=== PATIENT | male | born 1995 | race Caucasian/White ===

== ENCOUNTER 2017-12-28 19:11 | Emergency (ER) | payer BC ==
--- NOTE | 2017-12-28 19:15 | ER Report ---
History and Physical Time Seen By MD: 19:15 HPI/ROS CHIEF COMPLAINT: possible esophageal foreign body. HISTORY OF PRESENT ILLNESS: This is a 22 year old male. He is having vomiting after eating a piece of burrito that feels like it got stuck in lower esophagus. Cannot drink liquids. Had CT scan and labs at urgent care which were unremarkable. Had Glucagon and no improvement. Still with feeling of something in esophagus. He has no shortness of breath. No cough. Has asthma, but no problems at this time. No musculoskeletal pain. Allergies: Coded Allergies: shellfish derived (Verified Allergy, Mild, CHEST CRAMPS, 12/28/17) tree nut (Verified Allergy, Mild, VOMITING, 12/28/17) Home Meds Active Scripts Ondansetron (ZOFRAN ODT) 4 Mg Tab.rapdis, 4 MG PO Q6H Y for NAUSEA/VOMITING, # 20 TAB.BRYCE 0 Refills Prov:ORLIN ANDERSON MD 12/28/17 Reported Medications Warfarin Sodium (WARFARIN SODIUM) 5 Mg Tablet, 5 MG PO QDAY, TAB 12/28/17 Reviewed Nurses Notes: Yes Constitutional Vital Sign - Last 24 Hours 12/28/17 12/28/17 12/28/17 19:21 20:24 20:27 Temp 100.3 Pulse 101 116 95 Resp 14 24 20 B/P (MAP) 127/75 Pulse Ox 96 O2 Delivery Room Air Intake and Output 12/28/17 12/28/17 12/29/17 15:00 23:00 07:00 Intake Total 150 ml Balance 150 ml Physical Exam General Appearance: The patient is alert. No acute distress. Eyes: Pupils are equal, round. No pallor, injection or icterus. ENT: Mucous membranes are moist. Normal oral mucosa. Posterior oropharynx is normal. Neck: Supple and non tender. Respiratory: Lungs are clear to auscultation. Cardiovascular: Regular rate and rhythm. No murmurs, gallops or rubs. Normal capillary refill. Gastrointestinal: Abdomen is soft, non-tender. Nondistended. Normal active bowel sounds. Neurological: Alert and oriented x3. No focal neurologic deficits Skin: Warm and dry. [ ] [DIFFERENTIAL DIAGNOSIS: After history and physical exam, differential diagnosis was considered for] [ ] Medical Decision Making ED Course/Re-evaluation Clinical Indication for ER IV: Hydration, IV Access ED Course After the patient arrived, gave the patient 10 mg of IV Reglan. Waited for this to take effect and then at the patient drink some Coke. In between giving the medicine and drinking a Coke, the patient had what he felt like was a asthma attack. Gave an albuterol nebulizer which helped his breathing. He was able to drink the Coke without any problem. Recommended follow-up with general surgery or gastroenterology for further evaluation as an outpatient even though he is feeling better Decision to Disposition Date: Dec 28, 2017 Decision to Disposition Time: 20:41 Depart Departure Latest Vital Signs Vital Signs Date Time Temp Pulse Resp B/P (MAP) Pulse Ox O2 Delivery O2 Flow Rate FiO2 12/28/17 20:27 95 20 12/28/17 19:21 100.3 127/75 96 Room Air Impression: Primary Impression: Esophagus, foreign body Condition: Improved Disposition: HOME OR SELF-CARE Referrals: EDEN MITCHELL MD New Scripts Ondansetron (ZOFRAN ODT) 4 Mg Tab.rapdis 4 MG PO Q6H Y for NAUSEA/VOMITING, #20 TAB.BRYCE 0 Refills Prov: ORLIN ANDERSON MD 12/28/17 Patient Instructions: Esophageal Foreign Body (ED) Additional Instructions: Even though the foreign body in the esophagus has passed, we recommend follow- up with Dr. Mitchell for further evaluation. Take Zofran 4mg, one every 6 hours as needed for nausea. Problem Qualifiers Primary Impression: Esophagus, foreign body Encounter type: initial encounter Qualified Codes: T18.108A - Unspecified foreign body in esophagus causing other injury, initial encounter ORLIN ANDERSON MD Dec 28, 2017 19:15
[2017-12-28] MEDS ORDERED: WARF5TAB23 PO (19:20)
[2017-12-28 19:21] VITALS: BP 127/75
[2017-12-28] MEDS ORDERED: NS(*) 0.9% 1000 ML BAG 1,000 ML IV ONE (19:40)
[2017-12-28] MEDS ORDERED: METOCLOPRAMIDE 10 MG/2 ML SDV IVP ONE (19:40)
[2017-12-28] MEDS ORDERED: ALBUTEROL 2.5 MG/3 ML NEB NEB ONE (20:20)
[2017-12-28] MEDS ORDERED: ONDA4TAB PO (20:42)
[2017-12-28] MEDS ORDERED: ONDANSETRON 4 MG ODT TH SL ONE (20:45)
[2017-12-29] MEDS ORDERED: ACET500T68 PO (16:04)
== END 2017-12-28 20:57 | disposition home or self-care (01) ==
LOC: ER 19:16
DX: T18.108A Unspecified foreign body in esophagus causing other injury, initial encounter (principal)
CPT/HCPCS: 94640; 96361; 96374; 99284; J2765; J7030; J7613; S0119

== ENCOUNTER → 2017-12-28 | Outpatient (REF) | payer BC ==
[~2017-12-28] MED LIST: ACET500T68 PO; ONDA4TAB PO; WARF5TAB23 PO
[2017-12-28 15:55] LABS: PLATELET COUNT, AUTOMATED 167 K/uL (150-450)
[2017-12-28 16:11] LABS: INR 1.32
== END ==
PROVIDERS: ATTEND Nurse Practitioner Family
DX: R50.9 Fever, unspecified (principal)
CPT/HCPCS: 82040; 82150; 82247; 82310; 82374; 82435; 82565; 82947; 83690; 84075; 84132; 84155; 84295; 84450; 84460; 84484; 84520; 85025; 85610

== ENCOUNTER → 2017-12-28 | Outpatient (CLI) | payer BC ==
[~2017-12-28] MED LIST changes: +IOPAMIDOL 76% 75 ML INFUS BTL 75 ML ONE
--- NOTE | 2017-12-28 18:56 | RADIOLOGY IMAGING REPORT ---
FACILITY: [facility] PATIENT NAME: Renzo Smith : 1995 MR: [id number] V: [id number] EXAM DATE: [id number] ORDERING PHYSICIAN: EDEN MCCAIN TECHNOLOGIST: Location: [facility] [place] Patient: Renzo Smith : 1995 Visit/Account:[id number] Date of Sevice: 12/28/2017 CT abdomen and pelvis with IV contrast Indication: Right lower abdominal pain and epigastric pain. Comparison: None available. . Technique: Axial CT images were obtained through the abdomen and pelvis during injection of nonioni c iodinated intravenous contrast. Reformatted coronal and sagittal images were also obtained. One of the following dose optimization techniques was utilized in the performance of this exam: Autom ated exposure control; adjustment of the mA and/or kV according to the patient's size; or use of an i terative reconstruction technique. Specific details can be referenced in the facility's radiology C T exam operational policy. Contrast: 75 ml of Isovue-370 IV contrast. Findings: Lower lung harry: Limited views lower lung field are unremarkable. Liver: No focal parenchymal abnormality of the liver. Biliary: Gallbladder appears unremarkable as well as the intra and extra hepatic biliary system. Pancreas: Normal appearance. Spleen: Normal appearance. Adrenal glands: Unremarkable. Kidneys / retroperitoneum: No evidence of nephrolithiasis or hydronephrosis. Left kidney does show a subcentimeter hypodensities too small characterize and statistically tiny cyst. No other discrete gabriel al lesions. Bowel / peritoneum / mesenteries: The visualized gastrointestinal tract, including the appendix, with in normal limits. There is a small hiatal hernia. The stomach shows no other focal abnormality. No free air, free fluid, fluid collections or areas of inflammation. Very small umbilical hernia cont aining fat. Lymph node assessment: No pathologic adenopathy identified. Pelvic structures: Pelvic structures visualized are within normal limits. Vessels: No significant atherosclerotic calcifications seen throughout a nonaneurysmal abdominal aort a and branches. Musculoskeletal / Body wall: No acute or aggressive osseous abnormality. IMPRESSION: 1. No acute intra-abdominal abnormality. The appendix is normal. 2. Small hiatal hernia. Report Dictated By: Ankush Salazar at 12/28/2017 6:45 PM Report E-Signed By: Ankush Salazar at 12/28/2017 6:52 PM WSN:[id number]
== END ==
LOC: CT 17:53
PROVIDERS: ATTEND Nurse Practitioner Family
DX: K44.9 Diaphragmatic hernia without obstruction or gangrene (principal)
CPT/HCPCS: 74177; Q9967

== ENCOUNTER 2017-12-29 15:47 | Emergency (ER) | payer BC ==
[~2017-12-29 15:47] MED LIST changes: -ACET500T68 PO
[2017-12-29] MEDS ORDERED: ACET500T68 PO (16:04)
[2017-12-29] MEDS ORDERED: NS(*) 0.9% 1000 ML BAG 1,000 ML IV ONE (16:20)
[2017-12-29] MEDS ORDERED: ALBUTEROL/IPRATROPIUM 3 ML NEB NEB ONE (16:20)
--- NOTE | 2017-12-29 16:41 | ER Report ---
History and Physical Time Seen By MD: 16:20 Hx. of Stated Complaint: HIGH FEVER "103", DISAPHORESIS AND SORE THROAT/ FEELS LIKE SOMETHING CAUGHT IN THROAT/CRAMPING THROAT; VOMITING 3X TODAY HPI/ROS CHIEF COMPLAINT: Fever, cough, chest pain HISTORY OF PRESENT ILLNESS: Patient is a 22-year-old male accompanied by his mother, who presents the ED with complaint of 4 day history of fever, cough, chest pain. He states that he has pain in his chest particularly with swallowing. He states that he is able to swallow liquids and solids well without any issue but is just painful. He states that he was initially seen at the urgent care yesterday and then sent to the emergency room for further evaluation. He states that he did have a CT scan completed which was normal. He states that he did have some blood work completed which was normal. He also did have an influenza test completed which was negative at the time. Mother's concerned about his heart with his fever. She states that he had a mild chemical aortic valve placed 14 months ago. He states that this was completed at [place], [place]. He does not have a urologist here yet although he did try to establish one but did not have stated identification would not let him establish care yet. Patient states he has been taking some Tylenol for fever reduction with some relief. He does take Coumadin daily for anticoagulation due to his mechanical valve. He states that his throat has been sore. REVIEW OF SYSTEMS: Constitutional: See history of present illness. Eyes: No discharge. ENT: See history of present illness. Cardiovascular: See history of present illness. No palpitations. Respiratory: See history of present illness. No shortness of breath. Gastrointestinal: No abdominal pain, no vomiting. Genitourinary: No hematuria. Musculoskeletal: No back pain. Skin: No rashes. Neurological: No headache. Allergies: Coded Allergies: shellfish derived (Verified Allergy, Mild, CHEST CRAMPS, 12/28/17) tree nut (Verified Allergy, Mild, VOMITING, 12/28/17) Home Meds Active Scripts Ondansetron (ZOFRAN ODT) 4 Mg Tab.rapdis, 4 MG PO Q6H Y for NAUSEA/VOMITING, # 20 TAB.BRYCE 0 Refills Prov:ORLIN ANDERSON MD 12/28/17 Reported Medications Acetaminophen (TYLENOL EXTRA STRENGTH) 500 Mg Tablet, 500 MG PO, TAB 3/16/18 Warfarin Sodium (WARFARIN SODIUM) 5 Mg Tablet, 5 MG PO QDAY, TAB 12/28/17 Reviewed Nurses Notes: Yes Old Medical Records Reviewed: Yes Hx Substance Use Disorder: Yes (JERRY) Hx Alcohol Use: No Constitutional Vital Sign - Last 24 Hours 12/29/17 12/29/17 12/29/17 12/29/17 15:58 15:58 16:02 16:06 Temp 100.1 Pulse 98 ??? Resp 20 B/P (MAP) 137/90 137/90 (106) 128/77 (94) Pulse Ox 94 93 O2 Delivery Room Air 12/29/17 12/29/17 12/29/17 12/29/17 16:17 16:30 16:32 16:32 Pulse 88 86 Resp 8 12 B/P (MAP) 143/86 (105) Pulse Ox 94 95 O2 Delivery Room Air 12/29/17 12/29/17 12/29/17 12/29/17 16:32 16:39 16:47 17:00 Pulse 85 85 ??? Resp 16 12 B/P (MAP) 146/99 (115) Pulse Ox 95 97 12/29/17 12/29/17 12/29/17 12/29/17 17:02 17:17 17:30 17:32 Pulse 87 ??? 80 Resp 11 15 B/P (MAP) 162/96 (118) Pulse Ox 99 12/29/17 17:47 Pulse ??? Physical Exam General Appearance: The patient is alert, has no immediate need for airway protection and no signs of toxicity. Patient appears to be in some mild distress. Eyes: Pupils equal and round no pallor or injection. ENT, Mouth: His pharynx is erythematous but no exudate is appreciated. Respiratory: There are no retractions, lungs are clear to auscultation. Cardiovascular: Regular rate and rhythm. There is a systolic click noted likely from the mechanical valve. There is no other murmur, rub, gallop appreciated. Gastrointestinal: Abdomen is soft and non tender, no masses, bowel sounds normal. Neurological: Cranial nerves II-12 intact. Skin: Warm and dry, no rashes. Musculoskeletal: Neck is supple non tender. Extremities are nontender, nonswollen and have full range of motion. DIFFERENTIAL DIAGNOSIS: After history and physical exam differential diagnosis was considered for adult fever including but not limited to viral syndromes including influenza, urinary tract infection, pneumonia and sepsis. Medical Decision Making Data Points Result Diagram: 12/29/17 1520 12/29/17 1520 Laboratory Hematology Test 12/29/17 15:20 12/29/17 16:25 12/29/17 16:45 12/29/17 17:28 Red Blood Count 5.22 M/uL (4.00-5.60) Mean Corpuscular Volume 86.4 fL (80.0-96.0) Mean Corpuscular Hemoglobin 31.0 pg (26.0-33.0) Mean Corpuscular Hemoglobin Concent 35.9 g/dL (32.0-36.0) Red Cell Distribution Width 12.9 % (11.5-14.5) Mean Platelet Volume 10.0 fL (7.2-11.1) Neutrophils (%) (Auto) 77.8 % (39.4-72.5) Lymphocytes (%) (Auto) 8.9 % (17.6-49.6) Monocytes (%) (Auto) 12.2 % (4.1-12.4) Eosinophils (%) (Auto) 0.0 % (0.4-6.7) Basophils (%) (Auto) 1.1 % (0.3-1.4) Nucleated RBC Relative Count (auto) 0.0 /100WBC Neutrophils # (Auto) 8.8 K/uL (2.0-7.4) Lymphocytes # (Auto) 1.0 K/uL (1.3-3.6) Monocytes # (Auto) 1.4 K/uL (0.3-1.0) Eosinophils # (Auto) 0.0 K/uL (0.0-0.5) Basophils # (Auto) 0.1 K/uL (0.0-0.1) Nucleated RBC Absolute Count (auto) 0.00 K/uL Erythrocyte Sedimentation Rate 10 mm/HOUR (0-15) Prothrombin Time 16.9 seconds (12.0-14.4) Prothromb Time International Ratio 1.36 Activated Partial Thromboplast Time 36 seconds (23-35) Sodium Level 135 mmol/L (137-145) Potassium Level 3.4 mmol/L (3.5-5.0) Chloride Level 99 mmol/L (98-107) Carbon Dioxide Level 22 mmol/L (22-30) Blood Urea Nitrogen 13 mg/dl (9-21) Creatinine 1.10 mg/dl (0.66-1.25) Glomerular Filtration Rate Calc > 60.0 Random Glucose 102 mg/dl (75-110) Calcium Level 8.4 mg/dl (8.4-10.2) Total Bilirubin 0.6 mg/dl (0.2-1.3) Aspartate Amino Transf (AST/SGOT) 33 U/L (0-35) Alanine Aminotransferase (ALT/SGPT) 38 U/L (0-56) Alkaline Phosphatase 57 U/L (0-126) Troponin I 0.022 ng/ml C-Reactive Protein 8.8 mg/dl (<1.0) B-Type Natriuretic Peptide 46 pg/ml (0-100) Total Protein 7.5 gm/dl (6.3-8.2) Albumin 4.2 g/dl (3.5-5.0) Influenza Virus Type A (PCR) Negative (NEGATIVE) Influenza Virus Type B (PCR) Negative (NEGATIVE) Group A Streptococcus Screen Negative (NEGATIVE) Urine Color Yellow Urine Clarity Clear Urine pH 5.0 pH (4.8-9.5) Urine Specific Farner 1.029 Urine Protein 30 mg/dL (NEGATIVE) Urine Glucose (UA) Negative mg/dL (NEGATIVE) Urine Ketones 20 mg/dL (NEGATIVE) Urine Blood Negative (NEGATIVE) Urine Nitrite Negative (NEGATIVE) Urine Bilirubin Negative (NEGATIVE) Urine Urobilinogen 2.0 mg/dL (0.2-1.9) Urine Leukocyte Esterase Negative (NEGATIVE) Urine RBC 1 /HPF (0-2/HPF) Urine WBC 2 /HPF (0-5/HPF) Urine Squamous Epithelial Cells None /LPF (</=FEW) Urine Bacteria Negative /HPF (NONE-FEW) Urine Mucus Few /HPF (NONE-FEW) Test 12/29/17 18:20 Lactate 0.8 mmol/L (0.7-2.1) Chemistry Test 12/29/17 15:20 12/29/17 16:25 12/29/17 16:45 12/29/17 17:28 White Blood Count 11.2 k/uL (4.5-11.0) Red Blood Count 5.22 M/uL (4.00-5.60) Hemoglobin 16.2 g/dL (14.0-18.0) Hematocrit 45.0 % (42.0-52.0) Mean Corpuscular Volume 86.4 fL (80.0-96.0) Mean Corpuscular Hemoglobin 31.0 pg (26.0-33.0) Mean Corpuscular Hemoglobin Concent 35.9 g/dL (32.0-36.0) Red Cell Distribution Width 12.9 % (11.5-14.5) Platelet Count 136 K/uL (150-450) Mean Platelet Volume 10.0 fL (7.2-11.1) Neutrophils (%) (Auto) 77.8 % (39.4-72.5) Lymphocytes (%) (Auto) 8.9 % (17.6-49.6) Monocytes (%) (Auto) 12.2 % (4.1-12.4) Eosinophils (%) (Auto) 0.0 % (0.4-6.7) Basophils (%) (Auto) 1.1 % (0.3-1.4) Nucleated RBC Relative Count (auto) 0.0 /100WBC Neutrophils # (Auto) 8.8 K/uL (2.0-7.4) Lymphocytes # (Auto) 1.0 K/uL (1.3-3.6) Monocytes # (Auto) 1.4 K/uL (0.3-1.0) Eosinophils # (Auto) 0.0 K/uL (0.0-0.5) Basophils # (Auto) 0.1 K/uL (0.0-0.1) Nucleated RBC Absolute Count (auto) 0.00 K/uL Erythrocyte Sedimentation Rate 10 mm/HOUR (0-15) Prothrombin Time 16.9 seconds (12.0-14.4) Prothromb Time International Ratio 1.36 Activated Partial Thromboplast Time 36 seconds (23-35) Glomerular Filtration Rate Calc > 60.0 Calcium Level 8.4 mg/dl (8.4-10.2) Total Bilirubin 0.6 mg/dl (0.2-1.3) Aspartate Amino Transf (AST/SGOT) 33 U/L (0-35) Alanine Aminotransferase (ALT/SGPT) 38 U/L (0-56) Alkaline Phosphatase 57 U/L (0-126) Troponin I 0.022 ng/ml C-Reactive Protein 8.8 mg/dl (<1.0) B-Type Natriuretic Peptide 46 pg/ml (0-100) Total Protein 7.5 gm/dl (6.3-8.2) Albumin 4.2 g/dl (3.5-5.0) Influenza Virus Type A (PCR) Negative (NEGATIVE) Influenza Virus Type B (PCR) Negative (NEGATIVE) Group A Streptococcus Screen Negative (NEGATIVE) Urine Color Yellow Urine Clarity Clear Urine pH 5.0 pH (4.8-9.5) Urine Specific Farner 1.029 Urine Protein 30 mg/dL (NEGATIVE) Urine Glucose (UA) Negative mg/dL (NEGATIVE) Urine Ketones 20 mg/dL (NEGATIVE) Urine Blood Negative (NEGATIVE) Urine Nitrite Negative (NEGATIVE) Urine Bilirubin Negative (NEGATIVE) Urine Urobilinogen 2.0 mg/dL (0.2-1.9) Urine Leukocyte Esterase Negative (NEGATIVE) Urine RBC 1 /HPF (0-2/HPF) Urine WBC 2 /HPF (0-5/HPF) Urine Squamous Epithelial Cells None /LPF (</=FEW) Urine Bacteria Negative /HPF (NONE-FEW) Urine Mucus Few /HPF (NONE-FEW) Test 12/29/17 18:20 Lactate 0.8 mmol/L (0.7-2.1) Coagulation Test 12/29/17 15:20 Prothrombin Time 16.9 seconds Prothromb Time International Ratio 1.36 Activated Partial Thromboplast Time 36 seconds Urinalysis Test 12/29/17 17:28 Urine Color Yellow Urine Clarity Clear Urine pH 5.0 pH (4.8-9.5) Urine Specific Farner 1.029 Urine Protein 30 mg/dL (NEGATIVE) Urine Glucose (UA) Negative mg/dL (NEGATIVE) Urine Ketones 20 mg/dL (NEGATIVE) Urine Blood Negative (NEGATIVE) Urine Nitrite Negative (NEGATIVE) Urine Bilirubin Negative (NEGATIVE) Urine Urobilinogen 2.0 mg/dL (0.2-1.9) Urine Leukocyte Esterase Negative (NEGATIVE) Urine RBC 1 /HPF (0-2/HPF) Urine WBC 2 /HPF (0-5/HPF) Urine Squamous Epithelial Cells None /LPF (</=FEW) Urine Bacteria Negative /HPF (NONE-FEW) Urine Mucus Few /HPF (NONE-FEW) ED Course/Re-evaluation Clinical Indication for ER IV: Hydration ED Course Patient will be given 1 L normal saline bolus with 4 mg IV Zofran. We will obtain labs, EKG, chest x-ray, influenza and strep swabs. 12/29/2017 6:52:33 pm - Discussed all labs with mother and patient. Patient does have some mild cytosis with a shift. He does have a negative chest x-ray, influenza swab, strep swab. He has a essentially normal urinalysis except for for some mild ketonuria. He does have a subtherapeutic INR which is at 1.36. His range should be 2.5-3.5. He states he has not checked his INR for a while. Discussed patient with Dr. Clark, animated cartoons painter at [facility] the patient be admitted via the hospital service and have a BRIAN completed tomorrow. He recommends finishing the 3 blood cultures and starting IV vancomycin and Zosyn. He also would like to start heparin given his subtherapeutic INR.Discussed patient with Dr. Chang, hospitalist, who will accept patient under her care. Decision to Disposition Date: Dec 29, 2017 Decision to Disposition Time: 18:56 Depart Departure Latest Vital Signs Vital Signs Date Time Temp Pulse Resp B/P (MAP) Pulse Ox O2 Delivery O2 Flow Rate FiO2 12/29/17 17:47 ??? 12/29/17 17:32 15 12/29/17 17:30 162/96 (118) 12/29/17 17:02 99 12/29/17 16:32 Room Air 12/29/17 15:58 100.1 Impression: Primary Impression: Fever of unknown origin Additional Impressions: Chest pain H/O mechanical aortic valve replacement Condition: Improved Disposition: XFER TO ACUTE CARE HOSPITAL MD Consult Note: Dr. Mahmood, Cardiology at [facility] Dr. Chang, Hospitalist at [facility] Dr. Lance, ED Problem Qualifiers Additional Impressions: Chest pain Chest pain type: unspecified Qualified Codes: R07.9 - Chest pain, unspecified MARSHALL RUBIN PA-C Dec 29, 2017 16:41
[2017-12-29 16:42] LABS: INR 1.36; PLATELET COUNT, AUTOMATED 136 K/uL (150-450)
[2017-12-29] MEDS ORDERED: ONDANSETRON 4 MG/2 ML VIAL IVP ONE ×2 (16:45→20:30)
--- NOTE | 2017-12-29 17:06 | RADIOLOGY IMAGING REPORT ---
FACILITY: [facility] - [place] PATIENT NAME: Renzo Smith : 1995 MR: [id number] V: [id number] EXAM DATE: ORDERING PHYSICIAN: MARSHALL RUBIN TECHNOLOG[place]: [place] [facility] [place] : 1995 Visit/Account:[id number] Date of Sevice: 12/29/2017 2 VIEWS CHEST INDICATION: Chest pain and fever. COMPARISON: None available FINDINGS: Cardiomediastinal silhouette and pulmonary vessels within normal limits. Valve replacement changes an d sternotomy changes. There is no focal infiltrate or lobar consolidation. There is no pneumothorax or pleural effusion. Nodule. Upper abdomen is unremarkable. Residual contrast in the colon. No acute bony abnormality. IMPRESSION: 1. No acute cardiopulmonary process. Report Dictated By: Ankush Salazar at 12/29/2017 5:01 PM Report E-Signed By: Ankush Salazar at 12/29/2017 5:04 PM WSN:[id number]
[2017-12-29] MEDS ORDERED: HEPARIN* SOD/D5W 25000 U/500ML 500 ML IV ONE (18:42)
[2017-12-29] MEDS ORDERED: PIPERACILLIN/TAZO*3.375GM VIAL 3.375 GM in NS(*) 0.9% 100 ML ADDVANT BAG 100 ML IVPB ONE (18:45)
[2017-12-29] MEDS ORDERED: VANCOMYCIN 1 GM ADDVIAL 1 GM in NS(*) 0.9% 250 ML ADDVAN BAG 250 ML IVPB ONE (18:45)
[2017-12-29] MEDS ORDERED: HEPARIN (PORC) 5000 UN/ML VIAL IVP ONE (18:45)
[2017-12-29] MEDS ORDERED: LORazepam 2 MG/ML VIAL IVP ONE ×2 (19:40→20:30)
[2017-12-29 19:44] VITALS: BP 144/77
--- NOTE | 2017-12-30 10:32 | EKG ---
FACILITY: [facility] PATIENT NAME: HAILY PAREDES : [id number] MR: [id number] V: [id number] EXAM DATE: ORDERING PHYSICIAN: MARSHALL RUBIN TECHNOLOGIST: LUKE Navarro Reason : SICK Blood Pressure : / mmHG Vent. Rate : 086 BPM Atrial Rate : 086 BPM P-R Int : 150 ms QRS Dur : 092 ms QT Int : 376 ms P-R-T Axes : -13 090 052 degrees QTc Int : 449 ms Normal sinus rhythm Rightward axis Borderline ECG No previous ECGs available Confirmed by ILAN ALVA ([id number]) on 12/30/2017 4:35:56 PM Referred By: CHARLIE Confirmed By:ILAN ALVA
== END 2017-12-29 20:46 | disposition short-term general hospital (02) ==
LOC: ER 15:55
DX: R50.9 Fever, unspecified (principal); R07.9 Chest pain, unspecified; Z95.2 Presence of prosthetic heart valve
CPT/HCPCS: 36415; 71046; 81001; 83605; 83880; 84484; 85025; 85610; 85651; 85730; 86140; 87040; 87081; 87088; 87502; 87880; 93005; 94640; 99285; J1644; J2060; J2405; J2543; J3370; J7030; J7050; J7620; 82040; 82247; 82310; 82374; 82435; 82565; 82947; 84075; 84132; 84155; 84295; 84450; 84460; 84520; 96361; 96365; 96368; 96375; 96376

== ENCOUNTER → 2017-12-29 | Outpatient (CLI) | payer BC ==
[~2017-12-29] MED LIST changes: +BARIUM SULFATE 176 GM BTL PO ONE; +BARIUM SULFATE 340 GM POWD ONE; -IOPAMIDOL 76% 75 ML INFUS BTL 75 ML ONE
--- NOTE | 2017-12-29 12:12 | RADIOLOGY IMAGING REPORT ---
[place] [facility] [place] Renzo Smith : 1995 MR: [id number] V: [id number] EXAM DATE: ORDERING PHYSICIAN: EDEN MCCAIN TECHNOLOGIST: Location: [facility] [place] Patient: Renzo Smith : 1995 Visit/Account:[id number] Date of Sevice: 12/29/2017 Exam type: ESOPHAGRAM History: Dysphagia Comparison: CT of abdomen and pelvis and two-view chest arch 2017. Findings: Preliminary roller skater film of the chest reveals no evidence of a pneumothorax or pneumomediastinum no lesley dence of pulmonary consolidation or pleural effusion. The cardiac silhouette appears normal. Incide ntal noted are sternotomy sutures and a prosthetic cardiac valve. . Patient received oral thick and thin barium. There was no demonstration of esophageal blockage or intraluminal foreign body. No evidence of extraluminal extravasation of barium. Barium flowed free ly into the stomach. There is no demonstration of a hiatal hernia. The patient refused further imag ing to evaluate for gastroesophageal reflux. The fluoroscopy dose area product was 312.56 micro-Castellanos per meter squared IMPRESSION: 1. No evidence of esophageal foreign body or blockage or extraluminal extravasation of barium. Study was somewhat limited as the patient refused further imaging there for evaluation for gastroesop hageal reflux was not performed The patient symptoms persist endoscopy is recommended Results were called to Pal Mccain NP at 12/29/2017 12:02 PM. Report Dictated By: Michelle Flowers MD at 12/29/2017 11:54 AM Report E-Signed By: Michelle Flowers MD at 12/29/2017 12:06 PM WSN:[email or web address]
== END ==
LOC: RAD 10:52
PROVIDERS: ATTEND Nurse Practitioner Family
DX: R13.0 Aphagia (principal)
CPT/HCPCS: 74220

== ENCOUNTER → 2017-12-29 | Outpatient (CLI) | payer BC ==
[~2017-12-29] MED LIST changes: -BARIUM SULFATE 176 GM BTL PO ONE; -BARIUM SULFATE 340 GM POWD ONE
== END ==
LOC: AMB 19:53
PROVIDERS: ATTEND Nurse Practitioner
DX: I38 Endocarditis, valve unspecified (principal)
CPT/HCPCS: A0425; A0433

== ENCOUNTER → 2018-03-09 | Outpatient (REF) | payer BC ==
[~2018-03-09] MED LIST changes: +ACET500T68 PO
[2018-03-09 13:14] LABS: INR 3.32
== END ==
PROVIDERS: ATTEND Physician Assistant Medical
DX: Z95.2 Presence of prosthetic heart valve (principal)
CPT/HCPCS: 85610